=== PATIENT | male | born 1975 | race Caucasian/White ===

== ENCOUNTER 2018-03-06 20:18 | Emergency (ER) | payer SELFPAY ==
[2018-03-06 20:38] VITALS: BP 151/95
[2018-03-06] MEDS ORDERED: Acetaminophen/HYDROcodone 325-5 MG Tab PO ONE (21:06)
[2018-03-06] MEDS ORDERED: Tamsulosin 0.4 MG Cap.ER PO ONE (21:06)
--- NOTE | 2018-03-06 21:06 | EDM.PDOC ---
ED HPI GENERAL MEDICAL PROBLEM - General Chief Complaint: Genitourinary Problem Stated Complaint: BLOOD IN URINE Time Seen by Provider: 03/06/18 20:37 Source of Information: Reports: Patient, Significant Other (Girlfriend) History Limitations: Reports: No Limitations - History of Present Illness INITIAL COMMENTS - FREE TEXT/NARRATIVE: The patient states that he developed right flank pain and gross hematuria this morning. The patient can fully characterized the pain as "constant". It sometimes radiates to his right lower quadrant. He has not identified any modifiers. No recent dysuria, urinary frequency, or urinary urgency. No recent fever, nausea, vomiting, constipation, or diarrhea. No prior similar symptoms. The patient has not taken any [id number] medications or home remedies for his symptoms. The patient does not have a PCP. 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 Right Flank Pain Score (Numeric/FACES): 5 - Related Data Allergies Allergy/AdvReac Type Severity Reaction Status Date / Time No Known Allergies Allergy Verified 03/06/18 20:38 Home Meds: Home Meds Sulfamethoxazole/Trimethoprim [Bactrim Ds Tablet] 1 tab PO Q12H #9 tablet [Rx] Past Medical History Endocrine/Metabolic History: Reports: Obesity/BMI 30+ - Past Surgical History HEENT Surgical History: Reports: Oral Surgery (wisdom teeth extraction) GI Surgical History: Reports: Cholecystectomy (around 2012) Musculoskeletal Surgical History: Reports: Amputation (partial, right 2nd finger ) Social & Family History - Tobacco Use Smoking Status *Q: Current Every Day Smoker Years of Tobacco use: 28 Packs/Tins Daily: 2 - Caffeine Use Caffeine Use: Reports: Soda - Alcohol Use Alcohol Use History: Yes Alcohol Use Frequency: Rarely - Recreational Drug Use Recreational Drug Use: No - Living Situation & Occupation Living situation: Reports: , with Significant Other (Girlfriend) 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 ED EXAM, RENAL/ - Physical Exam Exam: See Below Exam Limited By: No Limitations General Appearance: Alert, WD/WN, No Apparent Distress Eye Exam: Bilateral Eye: EOMI, Normal Inspection Ears: Normal External Exam, Hearing Grossly Normal Nose: Normal Inspection, No Blood Throat/Mouth: Normal Inspection, Normal Lips, Normal Voice, No Airway Compromise Head: Atraumatic, Normocephalic Neck: Normal Inspection, Full Range of Motion Respiratory/Chest: No Respiratory Distress, Lungs Clear, Normal Breath Sounds, No Accessory Muscle Use Cardiovascular: Normal Peripheral Pulses, Regular Rate, Rhythm, No Gallop, No JVD, No Murmur, No Rub GI/Abdominal: Normal Bowel Sounds, Soft, Non-Tender, No Organomegaly, No Distention, No Abnormal Bruit, No Mass, Other (Obese) (Male) Exam: Deferred Rectal (Males) Exam: Deferred Back Exam: Normal Inspection, Full Range of Motion. No: CVA Tenderness (L), CVA Tenderness (R) Extremities: Normal Inspection, Normal Range of Motion, No Pedal Edema, Normal Capillary Refill Neurological: Alert, Oriented, Normal Cognition, No Motor/Sensory Deficits Psychiatric: Normal Affect Skin Exam: Warm, Dry, Intact, Normal Color, No Rash Course - Vital Signs Last Recorded V/S: Last Vital Signs Temp 36.4 C 03/06/18 20:36 Pulse 89 03/06/18 20:36 Resp 16 03/06/18 20:36 BP 151/95 H 03/06/18 20:36 Pulse Ox 96 03/06/18 20:36 - Orders/Labs/Meds Orders: Active Orders 24 hr Category Date Time Status Abdomen Pelvis wo Cont [CT] Stat Exams 03/06/18 21:01 Taken CULTURE URINE [RM] Stat Lab 03/06/18 22:00 Ordered UA W/MICROSCOPIC [URIN] Stat Lab 03/06/18 21:20 Ordered Labs: Laboratory Tests 03/06/18 Range/Units 21:20 Urine Color Red H (Yellow) Urine Appearance Slt cloudy H (Clear) Urine pH 5.5 (5.0-8.0) Ur Specific [place] > or = 1.030 (1.005-1.030) Urine Protein 3+ H (Negative) Urine Glucose (UA) Negative (Negative) Urine Ketones Trace H (Negative) Urine Occult Blood 3+ H (Negative) Urine Nitrite Positive H (Negative) Urine Bilirubin 1+ H (Negative) Urine Urobilinogen 1.0 (0.2-1.0) Ur Leukocyte Esterase 1+ H (Negative) Urine RBC 50-75 H (0-5) /hpf Urine WBC 40-50 H (0-5) /hpf Ur Epithelial Cells 10-20 H (0-5) /hpf Urine Bacteria Many H (FEW) /hpf Urine Mucus Few (FEW) /hpf Meds: Medications Discontinued Medications Generic Name Dose Route Start Last Admin Trade Name Sandip PRN Reason Stop Dose Admin Hydrocodone Bitart/Acetaminophen 2 tab 03/06/18 21:06 03/06/18 21:30 [place] 325-5 Mg PO 03/06/18 21:07 2 tab ONETIME ONE Administration Tamsulosin HCl 0.4 mg 03/06/18 21:06 03/06/18 21:31 Flomax PO 03/06/18 21:07 0.4 mg ONETIME ONE Administration Trimethoprim/Sulfamethoxazole 1 tab 03/06/18 22:02 03/06/18 22:11 Septra Ds PO 03/06/18 22:03 1 tab ONETIME ONE Administration - Re-Assessments/Exams Free Text/Narrative Re-Assessment/Exam: 03/06/18 21:05 Right flank pain and gross hematuria are concerning for a right ureterolith. I have therefore ordered a urinalysis and CT scan of the abdomen and pelvis without contrast. The patient states that he does not like needles, and his pain is not that severe, therefore he declined an offer to have an IV placed for pain medication. I will order a couple of [place] and Flomax. The patient denies having nausea. 03/06/18 22:02 The patient's urinalysis is nitrite positive, 1+ leukocyte esterase with 40-50 WBCs, 3+ occult blood 50-75 RBCs, 10-20 epithelial cells, and many bacteria. This is a contaminated sample as evidenced by only 1+ leukocyte esterase despite 40-50 WBCs, and 10-20 epithelial cells, however, the nitrate positivity is strongly indicative of a UTI, therefore I will treat the patient with oral Bactrim. A urine culture has been ordered. 03/06/18 22:29 CT of the abdomen and pelvis without contrast is read by [facility] as: 1. 5 mm nonobstructing stone mid aspect of the right kidney 2. Status post cholecystectomy 3. Ventral abdominal wall hernia containing loops of small bowel. No evidence for incarceration or obstruction 03/06/18 22:47 Test results discussed with the patient and his girlfriend. There is no evidence of a current ureterolith, however, it is possible that the patient had a ureterolith that he has since passed. It is also possible that the gross hematuria that the patient had is due to a UTI. The patient will be discharged home with a 5-day prescription for Bactrim, as well as a referral to Dr. Brigette Byrd to follow-up on the urine culture results, as well as to establish a PCP. I will also refer the patient Dr. Berry, in case the patient's gross hematuria persists. Departure - Departure Time of Disposition: 22:48 Disposition: Home, Self-Care 01 Condition: Good Clinical Impression: Gross hematuria, Possible urinary tract infection - Discharge Information *PRESCRIPTION DRUG MONITORING PROGRAM REVIEWED*: Not Applicable *COPY OF PRESCRIPTION DRUG MONITORING REPORT IN PATIENT ALFONSO: Not Applicable Referrals: PCP,None [Primary Care Provider] - Brigette Byrd MD [Physician] - Hermilo Berry MD [Ordering Only Provider] - Forms: ED Department Discharge Additional Instructions: You were seen in the emergency room for right flank pain and bloody urine. Workup in the ER included a urinalysis and a CT scan of your abdomen and pelvis. You MAY have a urinary tract infection. A sample of your urine has been sent for culture. You have been started on the antibiotic Bactrim. A prescription for Bactrim has been sent to the [facility], [address] [place] [address]. Take one tablet every 12 hours, starting tomorrow morning, 03/07/2018, as prescribed. Finish the entire prescription unless told otherwise by a doctor. Stay adequately hydrated. It does not make any difference what fluid you drink. Follow-up with Dr. Brigette Byrd in the clinic on or about , 03/09/2018, to check on your urine culture results, and also to establish a primary care physician. The CT scan of your abdomen and pelvis found a stone in your right kidney, however, that stone is not causing any problems whatsoever. No stone was found in your ureter, however, it is possible that you passed a kidney stone earlier. If you continue to have bloody urine despite adequate treatment with Bactrim, please follow-up with the Urologist Dr. Hermilo Berry in [place] for further evaluation and treatment. If any other problems, please do not hesitate to return to the ER. - My Orders Last 24 Hours: My Active Orders 03/06/18 21:01 Abdomen Pelvis wo Cont [CT] Stat 03/06/18 21:20 UA W/MICROSCOPIC [URIN] Stat 03/06/18 22:00 CULTURE URINE [RM] Stat - Assessment/Plan Last 24 Hours: My Active Orders 03/06/18 21:01 Abdomen Pelvis wo Cont [CT] Stat 03/06/18 21:20 UA W/MICROSCOPIC [URIN] Stat 03/06/18 22:00 CULTURE URINE [RM] Stat
[2018-03-06] MEDS ORDERED: Sulfamethoxazole/Trimethoprim 800-160 MG Tab PO ONE (22:02)
--- NOTE | 2018-03-07 07:41 | CT ---
CT abdomen and pelvis Technique: Multiple axial sections were obtained from above the dome of the diaphragm inferiorly through the pubic symphysis. Intravenous and oral contrast not utilized. Study has been performed as a ureteral stone protocol. Findings: Nonobstructing calculus is noted within the right mid kidney measuring approximately 8 mm. No other abnormal calcifications are seen within the kidneys. No ureteral dilatation or ureteral stone is seen. Visualized lung bases show nothing acute. Noncontrast appearance of the liver shows no focal parenchymal abnormality. Surgical clips are seen from prior cholecystectomy. Spleen appears within normal limits. Adrenal glands show no nodule. Pancreas is within normal limits. Aorta shows mild atherosclerotic change without aneurysm. No retroperitoneal adenopathy is seen. No mesenteric abnormalities are seen. Anterior abdominal wall hernia seen containing nondilated loops of small bowel. No pelvic mass or adenopathy is seen. No free fluid or inflammatory change is seen. Appendix is identified which appears normal in size. Bone window settings were reviewed which show mild scattered degenerative change within the spine. Impression: 1. 8 mm nonobstructing stone within the mid right kidney. No ureteral dilatation or ureteral stone is seen. 2. Anterior abdominal wall hernia containing nondilated small bowel loops. 3. Other incidental findings as noted above. Diagnostic code #2 I agree with preliminary report issued by [facility] ([facility] report finalized on 03/06/18, 11:26 PM Central Time)
== END 2018-03-06 23:01 | disposition home or self-care (01) ==
LOC: JD.ED 20:18
DX: R31.0 Gross hematuria (principal); F17.210 Nicotine dependence, cigarettes, uncomplicated
CPT/HCPCS: 74176; 81001; 87086; 87088; 87186; 99284; A9270; 99283

== ENCOUNTER 2021-04-12 02:28 | Emergency (ER) | payer SELFPAY ==
--- NOTE | 2021-04-12 02:36 | EDM.PDOC ---
ED HPI GENERAL MEDICAL PROBLEM - General Chief Complaint: ENT Problem Stated Complaint: TOOTHACHE Time Seen by Provider: 04/12/21 02:40 Source of Information: Reports: Patient History Limitations: Reports: No Limitations - History of Present Illness INITIAL COMMENTS - FREE TEXT/NARRATIVE: 45-year-old male presents to the ED due to dental pain. He has chronic dental caries involving multiple teeth but current pain is coming from the lower mandibular teeth. On inspection he has only about 30% left of his bicuspid teeth and right lower canine tooth all of which could be causing current pain syndrome. He states he is made a dental appointment but cannot get in until May 08. 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 Patient has been taking Tylenol, Motrin and topical Ambacil but none of them are working anymore. He states he can only get his sleep and for about an hour at a time. Onset: Gradual (Gradually worsening pain in the teeth for the last 3 weeks) Onset Date: 03/22/21 Duration: Week(s):, Getting Worse Quality: Reports: Ache, Throbbing Severity: Moderate Improves with: Reports: Other (Only way he can get a relief of the pain is sucking on some cool liquids continuously) Worsens with: Reports: None Context: Denies: Activity, Exercise, Lifting, Sick Contact, Trauma, Other Associated Symptoms: Reports: Malaise. Denies: Cough, cough w sputum, Diaphoresis, Fever/Chills, Headaches, Loss of Appetite, Nausea/Vomiting, Rash, Shortness of Breath, Syncope, Weakness Treatments CARGO BROKER: Reports: Acetaminophen, NSAIDS (Motrin) Right Oral/Mouth Pain Score (Numeric/FACES): 10 - Related Data Allergies Allergy/AdvReac Type Severity Reaction Status Date / Time No Known Allergies Allergy Verified 04/12/21 02:44 Home Meds: Home Meds Amoxicillin [Amoxil] 500 mg PO TID #30 tab.chew 04/12/21 [Rx] oxyCODONE HCl/Acetaminophen [Percocet 5-325 mg Tablet] 1 - 2 each PO Q4H PRN #20 tablet 04/12/21 [Rx] Past Medical History Cardiovascular History: Reports: Hypertension Endocrine/Metabolic History: Reports: Obesity/BMI 30+ - Past Surgical History HEENT Surgical History: Reports: Oral Surgery (wisdom teeth extraction) GI Surgical History: Reports: Cholecystectomy (around 2012) Musculoskeletal Surgical History: Reports: Amputation (partial, right 2nd finger) Social & Family History - Caffeine Use Caffeine Use: Reports: Soda - Living Situation & Occupation Living situation: Reports: , with Significant Other (Girlfriend) 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 Denies: Fever, Chills, Malaise, Weakness, Fatigue, Weight Loss HEENT: Reports: Dental Pain (See history of present illness) Respiratory: Reports: No Symptoms Cardiovascular: Reports: No Symptoms Endocrine: Reports: No Symptoms GI/Abdominal: Reports: No Symptoms : Reports: No Symptoms Musculoskeletal: Reports: Joint Pain (Knees hips low back and neck at times) Skin: Reports: No Symptoms Neurological: Reports: No Symptoms Psychiatric: Reports: No Symptoms Hematologic/Lymphatic: Reports: No Symptoms Immunologic: Reports: No Symptoms ED EXAM, ENT - Physical Exam Exam: See Below Exam Limited By: No Limitations General Appearance: Alert, WD/WN, No Apparent Distress, Other (Temperature is 36.1 degrees heart rate 81 and sinus respiratory is 20 with O2 sats of 96% room air.) Eye Exam: Bilateral Eye: Normal Inspection (Mild ptosis right upper eyelid) Mouth/Throat: Dental Pain (Patient has multiple dental caries involving his lower teeth. Currently the canine tooth and first and second bicuspid tooth are only about 30% present to the dental caries. They will need to have to be completely extracted to relieve his pain. The gingiva surrounding them is inflamed), Gum Swelling ( with no dental abscess evident that would benefit from drainage) Head: Atraumatic, Normocephalic Neck: Normal Inspection, Supple, Non-Tender, Full Range of Motion Respiratory/Chest: No Respiratory Distress, Lungs Clear, Normal Breath Sounds, No Accessory Muscle Use Course - Vital Signs Last Recorded V/S: Last Vital Signs Temp 36.1 C 04/12/21 02:42 Pulse 81 04/12/21 02:42 Resp 20 04/12/21 02:42 BP 164/99 H 04/12/21 02:42 Pulse Ox 96 04/12/21 02:42 - Orders/Labs/Meds Meds: Medications Discontinued Medications Generic Name Dose Route Start Last Admin Trade Name Freq PRN Reason Stop Dose Admin Amoxicillin/Clavulanate Potassium 1 tab 04/12/21 03:03 Amoxicillin/Clavulanate K 875-125 Mg Tab PO 04/12/21 03:04 ONETIME ONE Hydromorphone HCl 1.5 mg 04/12/21 02:50 04/12/21 02:57 Hydromorphone 1 Mg/Ml Syringe IM 04/12/21 02:51 1.5 mg ONETIME ONE Administration Promethazine HCl 25 mg 04/12/21 02:49 04/12/21 02:57 Promethazine 25 Mg/Ml Sdv IM 04/12/21 02:50 25 mg ONETIME ONE Administration - Radiology Interpretation Free Text/Narrative:: 45-year-old male presents to the ED due to inability to sleep due to dental pain. He has had chronic problems with multiple teeth and is in the process of having multiple teeth extracted. Cannot get into his dentist until May 08. Currently been using ambucil and Tylenol and Motrin for pain relief but they are no longer working. Exam reveals multiple dental caries particular involving the lower right canine and first and second bicuspid teeth with only approximately 25% of the tooth still present. They are severely eroded by dental caries. Plan given IM injection of Dilaudid 1.5 mg with Phenergan 25 mg in the hopes of getting him some sleep. Prescription written for Percocet tabs 5 325 mg strength 1 or 2 every 4-6 hours necessary for pain relief not to be used while driving or operating motor vehicle. Antibiotic will be Augmentin 875/125mg by mouth now. Then he is to start amoxicillin 500 mg 3 times daily for 10 days. Departure - Departure Time of Disposition: 03:17 Disposition: Home, Self-Care 01 Condition: Fair Clinical Impression: Infected dental caries - Discharge Information *PRESCRIPTION DRUG MONITORING PROGRAM REVIEWED*: Not Applicable *COPY OF PRESCRIPTION DRUG MONITORING REPORT IN PATIENT ALFONSO: Not Applicable Prescriptions: Amoxicillin [Amoxil] 500 mg PO TID #30 tab.chew oxyCODONE HCl/Acetaminophen [Percocet 5-325 mg Tablet] 1 - 2 each PO Q4H PRN #20 tablet PRN Reason: pain relief. Referrals: PCP,None [Primary Care Provider] - Forms: ED Department Discharge Additional Instructions: Evaluation in the emergency room tonight in regards to worsening dental pain due to severe dental caries eroding the canine and first bicuspid tooth. Dental infection caused by infection in the root of the tooth. You were given an IM injection of Dilaudid and Phenergan to relieve pain fairly promptly and allow you to sleep hopefully with for the next 6 hours. Prescription written for Percocet tabs 5/325 mg strength at you can take when you are not operating a motor vehicle 1 to 2 tablets every 4 hours as needed. Antibiotic is to be Amoxil 500 mg 3 times daily for the next 10 days to clear up any dental infection. Follow-up with dentist when able. Sepsis Event Note (ED) - Focused Exam Vital Signs: Vital Signs Temp Pulse Resp BP Pulse Ox 04/12/21 02:42 36.1 C 81 20 164/99 H 96
[2021-04-12 02:43] VITALS: BP 164/99; PULSE 81
[2021-04-12] MEDS ORDERED: Promethazine 25 MG/ML SDV IM ONE (02:49)
[2021-04-12] MEDS ORDERED: HYDROmorphone 1 MG/ML Syringe IM ONE (02:50)
[2021-04-12] MEDS ORDERED: Amoxicillin/Clavulanate K 875-125 MG Tab PO ONE (03:03)
== END 2021-04-12 03:13 | disposition home or self-care (01) ==
LOC: JD.ED 02:28
DX: K04.7 Periapical abscess without sinus (principal); K02.9 Dental caries, unspecified; I10 Essential (primary) hypertension; E66.9 Obesity, unspecified; Z68.43 Body mass index [BMI] 50.0-59.9, adult
CPT/HCPCS: 96372; 99282; J1170; J2550; 99283

== ENCOUNTER 2022-01-29 16:10 | Emergency (ER) | payer SELFPAY ==
[2022-01-29 19:19] LABS: CORONAVIRUS COVID-19 NAA POSITIVE (NEGATIVE)
[2022-01-29] MEDS ORDERED: Levofloxacin 750 MG Tab PO STA (22:45)
[2022-01-29 23:30] VITALS: BP 105/68; PULSE 105
== END 2022-01-29 23:20 | disposition home or self-care (01) ==
LOC: JD.ED 16:10
DX: U07.1 COVID-19 (principal); N39.0 Urinary tract infection, site not specified; F17.210 Nicotine dependence, cigarettes, uncomplicated; E66.9 Obesity, unspecified; Z68.43 Body mass index [BMI] 50.0-59.9, adult; Z86.16 Personal history of COVID-19; Z90.49 Acquired absence of other specified parts of digestive tract
CPT/HCPCS: 0240U; 36415; 71045; 80053; 81001; 84484; 85007; 85027; 85379; 86140; 87086; 87088; 87186; 93005; 99284

== ENCOUNTER 2022-02-21 19:39 | Emergency (ER) | payer SELFPAY ==
[2022-02-21 19:54] VITALS: BP 153/93; PULSE 95
[2022-02-21] MEDS ORDERED: Fluorescein 1 MG Ophth Strip EYEBOTH ONE (19:57)
[2022-02-21] MEDS ORDERED: Phenylephrine 2.5% Ophth Soln 2 ML Bot EYERT ONE (20:37)
[2022-02-21] MEDS ORDERED: Ciprofloxacin 0.3% Ophth Soln 5 ML Bottle EYERT SCH (20:45)
== END 2022-02-21 21:01 | disposition home or self-care (01) ==
LOC: JD.ED 19:39
DX: S05.01XA Injury of conjunctiva and corneal abrasion without foreign body, right eye, initial encounter (principal); H20.00 Unspecified acute and subacute iridocyclitis; I10 Essential (primary) hypertension; F17.210 Nicotine dependence, cigarettes, uncomplicated; E66.9 Obesity, unspecified; Z68.43 Body mass index [BMI] 50.0-59.9, adult; W22.09XA Striking against other stationary object, initial encounter
CPT/HCPCS: 99283; A9270; 99284

== ENCOUNTER 2022-09-26 14:38 | Emergency (ER) | payer SELFPAY ==
[2022-09-26] MEDS ORDERED: Sodium Chloride 0.9% 10 ML Syringe FLUSH PRN (14:59)
[2022-09-26] MEDS ORDERED: Ondansetron 4 MG/2 ML SDV IVPUSH ONE (14:59)
[2022-09-26] MEDS ORDERED: Sodium Chloride 0.9% 1,000 ML IV SCH (15:00)
[2022-09-26] MEDS ORDERED: Iopamidol 612 MG/ML 100 ML Bottle IVPUSH ONE (15:03)
[2022-09-26] MEDS ORDERED: Sodium Chloride 0.9% 10 ML Syringe FLUSH ONE (15:15)
[2022-09-26] MEDS ORDERED: cefTRIAXone 2 GM in Sodium Chloride 0.9% 100 ML IV ONE (16:50)
[2022-09-26 18:59] VITALS: BP 125/89; PULSE 89
== END 2022-09-26 18:55 | disposition home or self-care (01) ==
LOC: JD.ED 14:38
DX: K43.9 Ventral hernia without obstruction or gangrene (principal); N30.01 Acute cystitis with hematuria; K57.32 Diverticulitis of large intestine without perforation or abscess without bleeding; N13.2 Hydronephrosis with renal and ureteral calculous obstruction; I10 Essential (primary) hypertension; E66.9 Obesity, unspecified; Z68.43 Body mass index [BMI] 50.0-59.9, adult; Z72.0 Tobacco use; Z79.899 Other long term (current) drug therapy
CPT/HCPCS: 36415; 74177; 80053; 81001; 83690; 85025; 87086; 96361; 96365; 96375; 99284; J0696; J2405; J3490; J7030; Q9967; 87088; 87186

== ENCOUNTER 2024-09-09 00:54 | Emergency (ER) | payer SELFPAY ==
[2024-09-09 01:17] VITALS: BP 177/114; PULSE 83
[2024-09-09 01:36] LABS: APPEARANCE,URINE CLOUDY (Clear); BILIRUBIN,URINE NEGATIVE (Negative); COLOR,URINE YELLOW (Yellow); GLUCOSE,URINE NEGATIVE (Negative); KETONES,URINE NEGATIVE (Negative); LEUKOCYTE ESTERASE,URINE 3+ (Negative); NITRITE,URINE NEGATIVE (Negative); OCCULT BLOOD,URINE 2+ (Negative); PH,URINE 6.5 (5.0-8.0); PROTEIN,URINE 2+ (Negative); UROBILINOGEN,URINE 0.2 (0.2-1.0)
[2024-09-09 01:47] LABS: BACTERIA,URINE MANY /hpf (FEW); EPITHELIAL CELLS,URINE 0-5 /hpf (0-5); MUCUS,URINE NOT SEEN /hpf (FEW); RBC,URINE 50-75 /hpf (0-5); WBC CLUMPS,URINE MODERATE /hpf (NOT SEEN); WBC,URINE TOO NUMEROUS TO CNT /hpf (0-5)
== END 2024-09-09 03:00 | disposition home or self-care (01) ==
LOC: JD.ED 00:54
DX: J06.9 Acute upper respiratory infection, unspecified (principal); N39.0 Urinary tract infection, site not specified; H66.91 Otitis media, unspecified, right ear; I10 Essential (primary) hypertension; Z79.899 Other long term (current) drug therapy; Z86.16 Personal history of COVID-19; Z90.49 Acquired absence of other specified parts of digestive tract
CPT/HCPCS: 71045; 71045-26; 81001; 87086; 87428-QW; 99283; 99284

== ENCOUNTER 2024-11-25 18:07 | Inpatient (IN) | payer SELFPAY ==
[2024-11-25] MEDS ORDERED: Sodium Chloride 0.9% 10 ML Syringe FLUSH PRN (18:36)
[2024-11-25 18:44] LABS: BASOPHILS ABSOLUTE AUTO 0.1 K/mm3 (0.0-0.2); BASOPHILS PERCENT AUTO 0.8 % (0.0-1.0); EOSINOPHILS ABSOLUTE AUTO 0.1 K/mm3 (0.0-0.4); EOSINOPHILS PERCENT AUTO 1.4 % (0.0-6.0); HEMATOCRIT 47.7 % (42.0-52.0); HEMOGLOBIN 16.8 gm/dl (14.0-18.0); IMMATURE GRAN ABSOLUTE AUTO 0.03 K/mm3 (0.00-0.05); IMMATURE GRAN PERCENT AUTO 0.5 % (0.0-0.4); LYMPHOCYTES ABSOLUTE AUTO 1.8 K/mm3 (1.0-4.8); LYMPHOCYTES PERCENT AUTO 27.8 % (24.0-44.0); MEAN CORPUSCULAR HEMOGLOBIN 31.5 pg (28.0-32.0); MEAN CORPUSCULAR HGB CONC 35.2 g/dl (32.0-36.0); MEAN CORPUSCULAR VOLUME 89.5 fl (83.0-99.0); MONOCYTES ABSOLUTE AUTO 0.6 K/mm3 (0.0-0.8); MONOCYTES PERCENT AUTO 9.5 % (0.0-8.0); NEUTROPHILS ABSOLUTE AUTO 3.9 K/mm3 (1.8-7.7); PLATELET COUNT,PLT 133 K/mm3 (150-400); RED BLOOD CELL COUNT 5.33 M/mm3 (4.52-5.90); WHITE BLOOD CELL COUNT,WBC 6.45 K/mm3 (3.9-11.3)
[2024-11-25] MEDS: Sodium Chloride 0.9% 1,000 ML IV STA ×3 (19:00→22:52)
[2024-11-25 19:06] LABS: APPEARANCE,URINE SLT CLOUDY (Clear); BILIRUBIN,URINE NEGATIVE (Negative); COLOR,URINE LIGHT YELLOW (Yellow); GLUCOSE,URINE 3+ (Negative); KETONES,URINE 1+ (Negative); LEUKOCYTE ESTERASE,URINE 1+ (Negative); NITRITE,URINE NEGATIVE (Negative); OCCULT BLOOD,URINE 2+ (Negative); PROTEIN,URINE TRACE (Negative); UROBILINOGEN,URINE 0.2 (0.2-1.0)
[2024-11-25 19:17] LABS: A/G RATIO 0.8 (1-2); ALBUMIN 3.5 g/dl (3.4-5.0); ANION GAP 12.8 (5-15); BILIRUBIN TOTAL 1.8 mg/dL (0.2-1.0); C-REACTIVE PROTEIN 1.48 mg/dL (<0.30); CALCIUM 10.8 mg/dL (8.5-10.1); CREATININE 1.2 mg/dL (0.7-1.3); EST CRCL DRUG DOSING (CG) 85.63 mL/min; POTASSIUM,K 4.8 mEq/L (3.5-5.1); PROTEIN TOTAL,TP 7.9 g/dl (6.4-8.2)
[2024-11-25] MEDS: Insulin Regular in 0.9 % NACL 100 ML IV SCH (19:38)
[2024-11-25 19:49] LABS: BACTERIA,URINE FEW /hpf (FEW); EPITHELIAL CELLS,URINE NOT SEEN /hpf (0-5); MUCUS,URINE NOT SEEN /hpf (FEW); RBC,URINE 30-40 /hpf (0-5); WBC CLUMPS,URINE FEW /hpf (NOT SEEN); WBC,URINE >100 /hpf (0-5)
[2024-11-25] MEDS: cefTRIAXone 2 GM in Sodium Chloride 0.9% 100 ML IV ONE (20:08)
[2024-11-25 20:33] LABS: HEMOGLOBIN A1C >14.0 %
[2024-11-25] MEDS: Insulin Lispro 100 Unit/ML 3 ML KwikPen SUBCUT ONE (22:26)
[2024-11-25] MEDS: Insulin Glargine,Human Rec. Analog 100 Units/ML 3 ML Pen SUBCUT STA (22:26)
[2024-11-25 23:08] LABS: ANION GAP 14.8 (5-15); CALCIUM 10.2 mg/dL (8.5-10.1); EST CRCL DRUG DOSING (CG) 102.75 mL/min; POTASSIUM,K 3.8 mEq/L (3.5-5.1)
[2024-11-25] MEDS: Potassium Chloride 10 MEQ in Premix Bag 1 BAG IV SCH (23:31)
[2024-11-26] MEDS: Nicotine 14 MG/24 Hr Patch TRDERM SCH (00:08)
[2024-11-26] MEDS: Acetaminophen/HYDROcodone 325-5 MG Tab PO PRN (00:09)
[2024-11-26 05:32] LABS: BASOPHILS ABSOLUTE AUTO 0.1 K/mm3 (0.0-0.2); BASOPHILS PERCENT AUTO 0.8 % (0.0-1.0); EOSINOPHILS ABSOLUTE AUTO 0.2 K/mm3 (0.0-0.4); EOSINOPHILS PERCENT AUTO 2.2 % (0.0-6.0); HEMATOCRIT 43.2 % (42.0-52.0); IMMATURE GRAN ABSOLUTE AUTO 0.03 K/mm3 (0.00-0.05); IMMATURE GRAN PERCENT AUTO 0.3 % (0.0-0.4); LYMPHOCYTES ABSOLUTE AUTO 0.6 K/mm3 (1.0-4.8); LYMPHOCYTES PERCENT AUTO 5.9 % (24.0-44.0); MEAN CORPUSCULAR HEMOGLOBIN 31.1 pg (28.0-32.0); MEAN CORPUSCULAR VOLUME 89.1 fl (83.0-99.0); MONOCYTES ABSOLUTE AUTO 0.5 K/mm3 (0.0-0.8); MONOCYTES PERCENT AUTO 5.2 % (0.0-8.0); NEUTROPHILS ABSOLUTE AUTO 8.6 K/mm3 (1.8-7.7); NEUTROPHILS PERCENT AUTO 85.6 % (41.0-71.0); PLATELET COUNT,PLT 118 K/mm3 (150-400); RED BLOOD CELL COUNT 4.85 M/mm3 (4.52-5.90); WHITE BLOOD CELL COUNT,WBC 10.05 K/mm3 (3.9-11.3)
[2024-11-26 05:42] LABS: HEMOGLOBIN 15.1 gm/dl (14.0-18.0)
[2024-11-26 05:45] LABS: A/G RATIO 0.7 (1-2); ALBUMIN 2.7 g/dl (3.4-5.0); ANION GAP 11.7 (5-15); BILIRUBIN TOTAL 1.4 mg/dL (0.2-1.0); BUN/CREATININE RATIO 11.3 (14-18); CALCIUM 9.5 mg/dL (8.5-10.1); CREATININE 0.8 mg/dL (0.7-1.3); EST CRCL DRUG DOSING (CG) 128.44 mL/min; MAGNESIUM 1.7 mg/dL (1.8-2.4); PHOSPHORUS 2.9 mg/dL (2.6-4.7); POTASSIUM,K 3.7 mEq/L (3.5-5.1); PROTEIN TOTAL,TP 6.5 g/dl (6.4-8.2)
[2024-11-26] MEDS: Insulin Lispro 100 Unit/ML 3 ML KwikPen SUBCUT SCH (07:54)
[2024-11-26] MEDS: Insulin Glargine,Human Rec. Analog 100 Units/ML 3 ML Pen SUBCUT SCH ×2 (07:55→20:22)
[2024-11-26] MEDS: Magnesium Sulfate 2 GM/50 mL 2 GM in Premix Bag 1 BAG IV ONE (08:04)
[2024-11-26] MEDS ORDERED: Acetaminophen 325 MG Tab PO PRN (08:34)
[2024-11-26] MEDS ORDERED: Polyethylene Glycol 3350 Powder 17 GM Packet PO PRN (08:34)
[2024-11-26] MEDS ORDERED: oxyCODONE 5 MG Tab PO PRN (08:34)
[2024-11-26] MEDS ORDERED: Docusate Sodium 100 MG Cap PO PRN (08:34)
[2024-11-26] MEDS ORDERED: Ondansetron 4 MG/2 ML SDV IV PRN (08:34)
[2024-11-26] MEDS: REMOVE NICOTINE TRDERM SCH (09:04)
[2024-11-26 10:11] LABS: CHOLESTEROL HDL 29 mg/dL (40-59); CHOLESTEROL LDL DIRECT 109 mg/dL (<100); CHOLESTEROL TOTAL 184 mg/dL (<200); TRIGLYCERIDES 315 mg/dL (<150)
[2024-11-26] MEDS: Enoxaparin 40 MG/0.4 ML Syringe SUBCUT SCH (10:13)
[2024-11-26] MEDS: Pantoprazole 40 MG Tab.CR PO SCH (10:14)
[2024-11-26] MEDS: Insulin Glargine,Human Rec. Analog 100 Units/ML 3 ML Pen SUBCUT ONE (10:56)
[2024-11-26] MEDS: cefTRIAXone 2 GM Vial IVPUSH SCH (20:14)
[2024-11-26] MEDS: atorvaSTATin 40 MG Tab PO SCH (20:17)
[2024-11-27 04:44] LABS: BASOPHILS ABSOLUTE AUTO 0.1 K/mm3 (0.0-0.2); BASOPHILS PERCENT AUTO 1.3 % (0.0-1.0); EOSINOPHILS ABSOLUTE AUTO 0.2 K/mm3 (0.0-0.4); EOSINOPHILS PERCENT AUTO 3.7 % (0.0-6.0); HEMATOCRIT 42.5 % (42.0-52.0); HEMOGLOBIN 14.5 gm/dl (14.0-18.0); IMMATURE GRAN ABSOLUTE AUTO 0.02 K/mm3 (0.00-0.05); IMMATURE GRAN PERCENT AUTO 0.3 % (0.0-0.4); LYMPHOCYTES ABSOLUTE AUTO 1.1 K/mm3 (1.0-4.8); MEAN CORPUSCULAR HEMOGLOBIN 31.2 pg (28.0-32.0); MEAN CORPUSCULAR HGB CONC 34.1 g/dl (32.0-36.0); MEAN CORPUSCULAR VOLUME 91.4 fl (83.0-99.0); MEAN PLATELET VOLUME 14.7 fl (9.4-12.4); MONOCYTES ABSOLUTE AUTO 0.6 K/mm3 (0.0-0.8); MONOCYTES PERCENT AUTO 8.8 % (0.0-8.0); NEUTROPHILS ABSOLUTE AUTO 4.3 K/mm3 (1.8-7.7); NEUTROPHILS PERCENT AUTO 67.9 % (41.0-71.0); PLATELET COUNT,PLT 100 K/mm3 (150-400); RED BLOOD CELL COUNT 4.65 M/mm3 (4.52-5.90); WHITE BLOOD CELL COUNT,WBC 6.28 K/mm3 (3.9-11.3)
[2024-11-27 05:09] LABS: A/G RATIO 0.6 (1-2); ALBUMIN 2.3 g/dl (3.4-5.0); ANION GAP 7.5 (5-15); BILIRUBIN TOTAL 0.9 mg/dL (0.2-1.0); BUN/CREATININE RATIO 12.9 (14-18); CALCIUM 8.9 mg/dL (8.5-10.1); CREATININE 0.7 mg/dL (0.7-1.3); EST CRCL DRUG DOSING (CG) 146.79 mL/min; MAGNESIUM 1.7 mg/dL (1.8-2.4); POTASSIUM,K 3.5 mEq/L (3.5-5.1)
[2024-11-27] MEDS: Magnesium Sulf/Wat 4 GM/50 mL 4 GM in Premix Bag 1 BAG IV ONE (08:19)
[2024-11-27] MEDS: Insulin Glargine,Human Rec. Analog 100 Units/ML 3 ML Pen SUBCUT SCH (08:23)
[2024-11-27] MEDS: Losartan 25 MG Tab PO SCH (08:41)
[2024-11-27 11:56] VITALS: BP 103/74; PULSE 75
[2024-11-29 18:46] LABS: GLUTAMIC ACID AB <5.0 IU/mL (0.0-5.0)
== END 2024-11-27 12:00 | disposition home or self-care (01) | DRG 638 ==
LOC: JD.ED 18:07 → JD.ICU 20:47
PROVIDERS: ADMIT Student in an Organized Health Care Education/Training Program; ATTEND Internal Medicine
DX: E11.00 Type 2 diabetes mellitus with hyperosmolarity without nonketotic hyperglycemic-hyperosmolar coma (NKHHC) (principal); N30.01 Acute cystitis with hematuria; Z68.42 Body mass index [BMI] 45.0-49.9, adult; E78.2 Mixed hyperlipidemia; I10 Essential (primary) hypertension; R80.9 Proteinuria, unspecified; E86.0 Dehydration; E83.42 Hypomagnesemia; R79.89 Other specified abnormal findings of blood chemistry; N20.0 Calculus of kidney; E66.813 Obesity, class 3; H54.7 Unspecified visual loss; Z98.890 Other specified postprocedural states; Z90.49 Acquired absence of other specified parts of digestive tract; Z72.0 Tobacco use; Z86.16 Personal history of COVID-19
CPT/HCPCS: 36415; 80048; 80053; 80061; 81001; 82010; 82947; 83036; 83735; 83930; 84100; 85025; 86140; 86337; 86341; 87086; 96361; 96365; 99285; 99285-25; A9270-GY; J0696; J1650; J1815; J1815-GY; J3475; J3480; J7030